=== PATIENT | male | born 1940 | race Caucasian/White ===

== ENCOUNTER → 2016-11-28 10:55 | Outpatient (CLI) | payer MEDICARE, BC ==
[2015-02-05 09:29] VITALS: BMI 35.3
[~2016-11-28 10:55] MED LIST: AZILECT1 MG PO; CHILDREN'S ASPI81 MG PO; FISH OIL 1,2001 CAP PO; FLOMAX0.4 MG PO; GLUCOPHAGE500 MG PO; LEVAQUIN500 MG PO; LORTAB 5/500 TA1 TA2 PO; MIRAPEX1 MG PO; SINEMET 25-1001 EACH PO; SINEMET CR 50-1 EACH PO; TRICOR145 MG PO; ZANAFLEX4 MG PO; [UNRECOGNIZED DRUG - CODE]
== END | disposition home or self-care (01) ==
LOC: D.CT 10:55
DX: R06.00 Dyspnea, unspecified (principal)

== ENCOUNTER → 2017-05-11 12:28 | Outpatient (CLI) | payer MEDICARE, BC ==
[2015-02-05 09:29] VITALS: BMI 35.3
== END | disposition home or self-care (01) ==
LOC: D.CT 12:28
DX: G20 Parkinson's disease (principal); R41.3 Other amnesia

== ENCOUNTER → 2017-06-13 12:37 | Outpatient (CLI) | payer MEDICARE, BC ==
[2015-02-05 09:29] VITALS: BMI 35.3
== END | disposition home or self-care (01) ==
LOC: D.CT 12:37
DX: J01.90 Acute sinusitis, unspecified (principal); D37.05 Neoplasm of uncertain behavior of pharynx

== ENCOUNTER 2017-09-15 14:25 | Emergency (ER) | payer MEDICARE, BC ==
[2015-02-05 09:29] VITALS: BMI 35.3
== END 2017-09-15 18:37 ==
LOC: D.ER 14:25
DX: S01.81XA Laceration without foreign body of other part of head, initial encounter (principal); W19.XXXA Unspecified fall, initial encounter; Y93.89 Activity, other specified; Y92.019 Unspecified place in single-family (private) house as the place of occurrence of the external cause; J44.9 Chronic obstructive pulmonary disease, unspecified; G20 Parkinson's disease

== ENCOUNTER 2017-10-18 20:51 | Inpatient (IN) | payer MEDICARE, BC ==
[~2017-10-18] VITALS: Ht 182.9 cm; Wt 99.8 kg
--- NOTE | ~2017-10-18 | DS ---
PATIENT:KENZIE SANTOYO :40 MEDICAL RECORD: [id number] DISCHARGE SUMMARY ADMISSION DATE: 10/18/17 DISCHARGE DATE: DATE OF ADMISSION: 10/18/2017 DATE OF DISCHARGE: 10/22/2017 ADMISSION DIAGNOSES: Possible pneumonia, UTI, fever, increasing fatigue, generalized weakness, history of advanced Parkinson's, and concern for possible cerebrovascular accident. DISCHARGE DIAGNOSES: Urinary tract infection with acute mental status change, advanced Parkinson's, likely contamination with positive blood culture Staph capitis times 1. HOSPITAL COURSE: The patient was admitted through the Emergency Room. There was concern about facial droop that was not noted by his physician on prior exams. No neurologist available. Transfer orders put in. The patient had accepted at [facility], but no bed available. The patient and family refused transfer. The patient was continued on antibiotics, supportive care. Per family, he is back to his baseline. Transfer order was placed for his neurologist at [facility]. I do not have neurology coverage on the weekend. The patient again kept here with supportive care per family's wishes. Swallow eval was obtained and the patient able to process his medications as have been in the past. Again, his is present and his family has been present and they state he is back to baseline. He is very anxious to go home. He will follow up with his neurologist this week. He has been on Levaquin IV. He is switched to Levaquin p.o. as this covers the urine pathogen as well as the likely contaminate of the blood pathogen, the Staph capitis. The patient will follow up with Dr. Clark. Home health is in place and he will also follow up with his neurologist this week. PHYSICAL EXAMINATION: VITAL SIGNS ON DISCHARGE: Temperature 97.5, blood pressure 122/58, heart rate 70, respirations 17, O2 sats 95%. GENERAL: The patient is alert, answers appropriately. No acute distress. Again, he states he is ready to go home. is present, she is ready for him to come home. Family support is in place. Home health is in place. HEART: Regular. LUNGS: Clear. ABDOMEN: Soft, nontender. EXTREMITIES: Present times 4. NEUROLOGIC: Appears to be at baseline. LABORATORY DATA: CBC: White count 6.5, hemoglobin 11.4, hematocrit 34.7, platelets 178. BUN 16, creatinine 1.0. Electrolytes normal. DISCHARGE MEDICATIONS: Per med rec. See chart for further details. TRANSINT:[id number] Voice Confirmation ID: [id number] DOCUMENT ID: [id number] DISCHARGE SUMMARY REPORT [id number] KENZIE SANTOYO ROBERT DO at 1251 CC: [id number] DICTATION DATE: 10/22/[address] MAGISTRATE: 10/22/17 1146 ADM IN [place] [id number] [place] [address]
[2017-10-18 22:02] LABS: BASOPHILS 0.2 % (0-2); EOSINOPHILS 0.4 % (0-7); HEMATOCRIT 34.6 % (42.0-54.0); HEMOGLOBIN 11.3 g/dL (13.5-17.5); IMMATURE GRANULOCYTES 0.4 % (0-5); LYMPHOCYTES 10.1 % (15-50); MCH 30.2 pg (26.0-34.0); MCHC 32.7 g/dL (31.0-37.0); MCV 92.5 fL (80.0-100.0); MEAN PLATELET VOLUME 10.4 fL (7.4-10.4); MONOCYTES 7.2 % (2-11); NEUTROPHILS 81.7 % (40-80); PLATELET COUNT 186 10x3/uL (130-400); RBC 3.74 10x6/uL (4.20-6.10); RDW 13.8 % (11.5-14.5); WBC 13.1 10x3/uL (4.8-10.8)
[2017-10-18 22:14] LABS: ALBUMIN 3.1 g/dL (3.4-5.0); ANION GAP 14.4 mmol/L (8-16); BILIRUBIN - TOTAL 0.45 mg/dL (0.2-1.3); CALCIUM 8.1 mg/dL (8.5-10.1); CARBON DIOXIDE 23.9 mmol/L (21.0-32.0); CREATININE - SERUM 1.2 mg/dL (0.6-1.3); POTASSIUM - SERUM 4.3 mmol/L (3.5-5.1); PROTEIN - SERUM 7.3 g/dL (6.4-8.2)
[2017-10-18 22:33] LABS: APPEARANCE CLEAR (CLEAR); COLOR YELLOW (YELLOW)
[2017-10-18 22:34] LABS: BACTERIA MANY /hpf (NONE SEEN); BILIRUBIN NEGATIVE (NEGATIVE); GLUCOSE NEGATIVE (NEGATIVE); KETONE NEGATIVE (NEGATIVE); NITRITE POSITIVE (NEGATIVE); PROTEIN NEGATIVE (NEGATIVE); RED CELLS - URINE OCC /hpf (0-5); UROBILINOGEN NORMAL (NORMAL)
[2017-10-19] MEDS ORDERED: ZOLOFT50 MG PO (05:34)
[2017-10-19] MEDS ORDERED: ARICEPT10 MG PO (05:35)
[2017-10-19] MEDS ORDERED: MINIPRESS1 MG PO (05:36)
[2017-10-19] MEDS ORDERED: GINGER500 MG PO (05:37)
[2017-10-19] MEDS ORDERED: VITAMIN D31000 UNIT PO (05:37)
[2017-10-19 06:00] VITALS: BP 142/73; BMI 29.9
[2017-10-19 08:34] VITALS: BP 140/57
[2017-10-19 11:48] VITALS: BP 133/58
[2017-10-19 16:14] VITALS: BP 152/67
[2017-10-19 20:00] VITALS: BP 115/67
[2017-10-19 23:59] VITALS: BP 118/49
[2017-10-20 05:18] LABS: BASOPHILS 0.3 % (0-2); EOSINOPHILS 0.9 % (0-7); HEMATOCRIT 34.1 % (42.0-54.0); HEMOGLOBIN 11.1 g/dL (13.5-17.5); IMMATURE GRANULOCYTES 0.3 % (0-5); MCH 30.4 pg (26.0-34.0); MCHC 32.6 g/dL (31.0-37.0); MCV 93.4 fL (80.0-100.0); MEAN PLATELET VOLUME 10.9 fL (7.4-10.4); MONOCYTES 8.1 % (2-11); NEUTROPHILS 75.4 % (40-80); RBC 3.65 10x6/uL (4.20-6.10); RDW 13.9 % (11.5-14.5)
[2017-10-20 05:23] LABS: WBC 9.4 10x3/uL (4.8-10.8)
[2017-10-20 05:24] LABS: PLATELET COUNT 156 10x3/uL (130-400)
[2017-10-20 06:02] LABS: ALBUMIN 2.8 g/dL (3.4-5.0); ANION GAP 15.1 mmol/L (8-16); BILIRUBIN - TOTAL 0.94 mg/dL (0.2-1.3); CALCIUM 8.2 mg/dL (8.5-10.1); CARBON DIOXIDE 23.9 mmol/L (21.0-32.0); CREATININE - SERUM 1.1 mg/dL (0.6-1.3); MAGNESIUM - SERUM 1.6 mg/dL (1.8-2.4); PHOSPHOROUS 3.3 mg/dL (2.5-4.9); PROTEIN - SERUM 6.8 g/dL (6.4-8.2)
[2017-10-20 07:56] VITALS: BP 133/72
[2017-10-20 12:11] VITALS: BP 113/57
[2017-10-20 13:13] VITALS: Ht 182.9 cm; Wt 99.8 kg
[2017-10-20 15:55] VITALS: BP 110/51
[2017-10-20 20:00] VITALS: BP 139/54
[2017-10-21] VITALS: BP 147/54
[2017-10-21 04:00] VITALS: BP 129/69
[2017-10-21 08:40] VITALS: BP 142/64
[2017-10-21 12:36] VITALS: BP 168/78
[2017-10-21 16:56] VITALS: BP 148/70
[2017-10-21 20:27] VITALS: BP 128/55
[2017-10-22 00:22] VITALS: BP 155/74
[2017-10-22 07:01] LABS: CALC OSMOLALITY 275 mosm/kg (275-300); CALCIUM 8.6 mg/dL (8.5-10.1); CARBON DIOXIDE 21.2 mmol/L (21.0-32.0); CHLORIDE - SERUM 103 mmol/L (98-107); GLUCOSE 121 mg/dL (74-106); POTASSIUM - SERUM 4.6 mmol/L (3.5-5.1); SODIUM 137 mmol/L (136-145); UREA NITROGEN 16 mg/dL (7-18); eGFR NON AFRICAN AMERICAN 77 mL/min (90-120)
[2017-10-22 07:06] LABS: BASOPHILS 0.3 % (0-2); EOSINOPHILS 5.4 % (0-7); HEMATOCRIT 34.7 % (42.0-54.0); HEMOGLOBIN 11.4 g/dL (13.5-17.5); IMMATURE GRANULOCYTES 0.3 % (0-5); LYMPHOCYTES 20.5 % (15-50); MCH 30.6 pg (26.0-34.0); MCHC 32.9 g/dL (31.0-37.0); MEAN PLATELET VOLUME 9.7 fL (7.4-10.4); MONOCYTES 10.1 % (2-11); NEUTROPHILS 63.4 % (40-80); PLATELET COUNT 178 10x3/uL (130-400); RBC 3.73 10x6/uL (4.20-6.10); RDW 13.6 % (11.5-14.5); WBC 6.5 10x3/uL (4.8-10.8)
[2017-10-22 08:36] VITALS: BP 122/58
[2017-10-22] MEDS ORDERED: LEVAQUIN500 MG PO (10:07)
[2017-10-22 12:04] VITALS: BP 157/78
== END 2017-10-22 14:10 | disposition home health service (06) | DRG 689 ==
LOC: D.ER 20:51 → D.EDHOLD 23:09 → D.MS 23:09
PROVIDERS: Emergency Medicine; Family Medicine
DX: N39.0 Urinary tract infection, site not specified (principal); G93.41 Metabolic encephalopathy; G20 Parkinson's disease; R29.810 Facial weakness; R47.1 Dysarthria and anarthria; R53.1 Weakness; E11.9 Type 2 diabetes mellitus without complications; I10 Essential (primary) hypertension